=== PATIENT | female | born 1990 | race Caucasian/White ===

== ENCOUNTER 2019-06-18 11:38 | Emergency (ER) | payer BC ==
[~2019-06-18] VITALS: Ht 157.5 cm; Wt 84.4 kg
[2019-06-18 11:46] VITALS: BP_SYST 129
--- NOTE | 2019-06-18 11:53 | NUR ---
AMBULATED TO BED 8
--- NOTE | 2019-06-18 12:10 | NUR ---
ER Dr. Nelson at bedside examining patient.
[2019-06-18] MEDS ORDERED: PHENYTOIN 100 MG CAPSULE PO ONE ×2 (12:15→13:15)
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
[2019-06-18 12:39] LABS: BASOPHILS % (AUTO) 0.5 % (0.0-2.0); EOSINOPHILS # (AUTO) 0.1 K/uL (0.0-0.4); HEMATOCRIT 32.3 % (36-48); HEMOGLOBIN 10.2 g/dL (12.0-16.0); LYMPHOCYTES # (AUTO) 1.7 K/uL (1.0-5.5); LYMPHOCYTES % (AUTO) 24.5 % (20.5-51.5); MEAN CORPUSCULAR HEMOGLOBIN 22 pg (27-31); MEAN CORPUSCULAR HGB CONC 32 % (32-36); MEAN CORPUSCULAR VOLUME 71 fL (79.0-98.0); MONOCYTES # (AUTO) 0.5 K/uL (0.0-1.0); MONOCYTES % (AUTO) 6.8 % (1.7-9.3); NEUTROPHILS # (AUTO) 4.7 K/uL (1.8-7.7); NEUTROPHILS % (AUTO) 67.2 % (40.0-70.0); PLATELET COUNT (AUTO) 476 K/uL (130-430); RED BLOOD CELL COUNT(AUTO) 4.58 MIL/uL (4.2-6.2); RED CELL DISTRIBUTION WIDTH 22.4 % (9.0-15.0); WHITE BLOOD COUNT (AUTO) 6.9 K/uL (4.8-10.8)
[2019-06-18 12:43] LABS: BILIRUBIN,URINE NEGATIVE (NEGATIVE); BLOOD, URINE NEGATIVE (NEGATIVE); CLARITY/URINE CLEAR (CLEAR); COLOR,URINE YELLOW (YELLOW); GLUCOSE,URINE NEGATIVE (NEGATIVE); KETONES,URINE NEGATIVE (NEGATIVE); LEUKOCYTE ESTERASE ,URINE NEGATIVE (NEGATIVE); NITRITE, URINE NEGATIVE (NEGATIVE); PROTEIN URINE NEGATIVE (NEGATIVE); UROBILINOGEN,URINE 0.2 (0.2-1.0)
--- NOTE | 2019-06-18 12:44 | NUR ---
PATIENT LEFT TO CT IN STABLE CONDITION.
--- NOTE | 2019-06-18 12:49 | NUR ---
PATIENT BACK FROM CT IN STABLE CONDITION.
[2019-06-18 12:52] LABS: CALCIUM 8.8 mg/dL (8.4-11.0); CREATININE 0.6 mg/dL (0.55-1.30); POTASSIUM 4.3 mmol/L (3.5-5.1)
[2019-06-18 12:58] LABS: ALBUMIN 3.3 g/dL (3.4-4.8); TOTAL BILIRUBIN 0.2 mg/dL (0.0-1.0)
--- NOTE | 2019-06-18 13:04 | NUR ---
PATIENT HUNGRY. DR PALACIOS SAID OKAY FOR PATIENT TO EAT. PATIENT EATING LUNCH TRAY.
--- NOTE | 2019-06-18 13:34 | NUR ---
Patient given written and verbal discharge instructions and verbalizes understanding. ER MD discussed with patient the results and treatment provided. Patient in stable condition. ID arm band removed. IV catheter removed intact and dressing applied, no active bleeding. Rx of dilantin, ibuprofen given. Patient educated on pain management and to follow up with PMD. Pain Scale 0/10 Opportunity for questions provided and answered. Medication side effect fact sheet provided.
[2019-06-18 13:37] VITALS: BP_SYST 121
== END 2019-06-18 13:34 | disposition home or self-care (01) ==
LOC: SED 11:38
DX: G40.909 Epilepsy, unspecified, not intractable, without status epilepticus (principal); F17.210 Nicotine dependence, cigarettes, uncomplicated
CPT/HCPCS: 36415; 70450-TC; 80053; 81003; 81025; 85025; 99284

== ENCOUNTER 2019-07-07 13:01 | Emergency (ER) | payer BC ==
[~2019-07-07] VITALS: Ht 157.5 cm; Wt 88.5 kg
[2019-07-07 13:08] VITALS: BP_SYST 126
[2019-07-07] MEDS ORDERED: PHENYTOIN 100 MG CAPSULE PO ONE (14:30)
[2019-07-07 14:54] VITALS: BP_SYST 140
== END 2019-07-07 14:45 | disposition home or self-care (01) ==
LOC: SED 13:01
DX: G40.509 Epileptic seizures related to external causes, not intractable, without status epilepticus (principal)
CPT/HCPCS: 36415; 80185-TC; 81025; 99283